=== PATIENT | male | born 1995 | race Two or more races ===

== ENCOUNTER → 2024-02-29 | Outpatient (BNVA) | payer MEDICAID, SELFPAY | END | disposition home or self-care (01) | PROVIDERS: PCP Nurse Practitioner Family; Referring Provider Nurse Practitioner Family; Visit Provider Nurse Practitioner Family | DX: M25.561 Pain in right knee (principal); M25.562 Pain in left knee; K76.0 Fatty (change of) liver, not elsewhere classified; R94.5 Abnormal results of liver function studies; E55.9 Vitamin D deficiency, unspecified; E78.5 Hyperlipidemia, unspecified; J02.9 Acute pharyngitis, unspecified | CPT/HCPCS: 96372; 99214; J1885 ==

== ENCOUNTER → 2024-03-04 | Outpatient (CLI) | payer MEDICAID, SELFPAY ==
--- NOTE | 2024-03-04 11:36 | XR_ITS ---
Examination: Bilateral knees 6 views Bilateral axial knees single view TECHNIQUE: AP oblique lateral right and left knees total 6 views Bilateral axial knees single view total 7 views Exam date and time: March 04, 2024 1137 hours INDICATIONS: Onset bilateral knee pain beginning one month ago. FINDINGS: Bilateral mild narrowing and early osteoarthritis medial joint spaces No patellar dislocation No fracture or dislocation IMPRESSION: Early osteoarthritis medial joint spaces
== END | disposition home or self-care (01) ==
LOC: CDIM 11:22
PROVIDERS: Referring Provider Nurse Practitioner Family; Visit Provider Nurse Practitioner Family
DX: M17.0 Bilateral primary osteoarthritis of knee (principal)
CPT/HCPCS: 73564

== ENCOUNTER → 2024-03-08 | Outpatient (BNVA) | payer MEDICAID, SELFPAY | END | disposition home or self-care (01) | PROVIDERS: PCP Nurse Practitioner Family; Referring Provider Nurse Practitioner Family; Visit Provider Nurse Practitioner Family | DX: M17.0 Bilateral primary osteoarthritis of knee (principal); Z71.2 Person consulting for explanation of examination or test findings | CPT/HCPCS: 99212; G0463 ==

== ENCOUNTER 2024-05-05 12:19 | Emergency (ER) | payer MEDICAID, SELFPAY ==
[2024-05-05 12:30] VITALS: BP 136/84; PULSE 98; RESP 18; TEMP 37.3; O2SAT 97; BMI 37.6
--- NOTE | 2024-05-05 12:37 | EDNOTE_ITS ---
ED Head Injury RME/HPI General Chief complaint: Head Injury Stated complaint: FOREHEAD SOCCOR INJURY FROM ELBOW Time Seen by Provider: 05/05/24 12:28 Source: patient Arrival date/time: 05/05/24 12:19 28-year-old male with no known medical history presents to the emergency room with a chief complaint of a small laceration to the right side of his forehead after playing soccer and getting hit with an elbow. Mode of arrival: ambulatory Limitations: no limitations Related Data Previous Rx's ?Medication ?Instructions ?Recorded diclofenac sodium 1 % topical gel 4 g topical QID #100 grams 03/08/24 (Voltaren Arthritis Pain) Allergies Allergy/AdvReac Type Severity Reaction Status Date / Time No Known Allergies Allergy Verified 05/05/24 12:21 Review of Systems Review of Systems Systems Reviewed: All systems reviewed, normal except as documented Constitutional Constitutional: Reports system reviewed and no additional complaints, except as documented, Denies fatigue, Denies fever(s), Denies headache(s) and Denies weakness Eyes Eyes: Reports system reviewed and no additional complaints, except as documented, Denies blurry vision and Denies change in vision ENT Ears, Nose, Mouth, and Throat: Reports system reviewed and no additional complaints, except as documented, Denies otalgia, Denies headache(s), Denies nasal congestion, Denies throat swelling and Denies vertigo Cardiovascular Cardiovascular: Reports system reviewed and no additional complaints, except as documented, Denies chest pain, Denies dyspnea and Denies dyspnea on exertion Respiratory Respiratory: Reports system reviewed and no additional complaints, except as documented, Denies chest congestion, Denies cough, Denies dyspnea, Denies dyspnea on exertion and Denies wheezing Gastrointestinal Gastrointestinal: Reports system reviewed and no additional complaints, except as documented, Denies abdominal pain, Denies cramping, Denies nausea and Denies vomiting Genitourinary Genitourinary: Reports system reviewed and no additional complaints, except as documented, Denies dysuria and Denies hematuria Musculoskeletal Musculoskeletal: Reports system reviewed and no additional complaints, except as documented and Denies back pain Integumentary/Breasts Skin/Breast: Reports system reviewed and no additional complaints, except as documented and Denies wounds Neurologic Neurologic: Reports system reviewed and no additional complaints, except as documented, Denies confusion, Denies headache(s), Denies lack of coordination, Denies vertigo and Denies weakness Psychiatric Psychiatric: Reports system reviewed and no additional complaints, except as documented, Denies anxiety, Denies confusion, Denies depression, Denies paranoia, Denies suicidal ideation and Denies tactile hallucinations Endocrine Endocrine: Reports system reviewed and no additional complaints, except as documented and Denies fatigue Hematologic/Lymphatic Hematologic/Lymphatic: Reports system reviewed and no additional complaints, except as documented and Denies lymphadenopathy Allergic/Immunologic Allergic/Immunologic: Reports system reviewed and no additional complaints, except as documented, Denies throat swelling, Denies urticaria and Denies wheezing Past Medical History Social History SMOKING STATUS: Never smoker SECOND HAND EXPOSURE: No ED Exam General Limitations: Present no limitations General appearance: Present alert and in no apparent distress Head Head exam: Present atraumatic, normocephalic and normal inspection Expanded Head Exam Head exam physical: Present laceration Head image: 2 1. 0.5 cm superficial abrasion to the right forehead. This wound does not need sutures and was closed and approximated with Dermabond. Eye Eye exam: Present normal appearance, PERRL and EOMI ENT ENT exam: Present normal exam, normal oropharynx and mucous membranes moist Neck Neck exam: Present normal inspection, full ROM and trachea midline Chest Chest inspection: Present normal inspection and symmetric chest wall rise Respiratory Respiratory exam: Present normal lung sounds bilaterally Cardiovascular Cardiovascular exam: Present regular rate, normal rhythm and normal heart sounds Abdominal Exam Abdominal exam: Present soft and normal bowel sounds Extremities Exam Extremities exam: Present normal inspection and full ROM Back Exam Back exam: Present normal inspection and full ROM Neurological Exam Neurological exam: Present alert, oriented X3 and CN II-XII intact Psychiatric Psychiatric exam: Present normal affect and normal mood Skin Skin exam: Present warm, dry, intact and normal color Course Quality Measures none Orders Category Date Time Status Wound Care NOW Care 05/05/24 12:42 Completed Acetaminophen Tab [Tylenol ES Tab] Med 05/05/24 13:26 Discontinued 1,000 mg PO X1 ONE Vital Signs Vital signs: Vital Signs Temperature 99.2 F 05/05/24 12:30 Pulse Rate 98 05/05/24 12:30 Respiratory Rate 18 05/05/24 12:30 Blood Pressure 136/84 H 05/05/24 12:30 Pulse Oximetry (%) 97 05/05/24 12:30 Oxygen Delivery Method Room Air 05/05/24 12:30 Head Injury MDM Narrative MDM Narrative:: 28-year-old male with no known medical history presents to the emergency room with a chief complaint of a small laceration to the right side of his forehead after playing soccer and getting hit with an elbow. Patient is hemodynamically stable and in no apparent distress. Patient is a GCS of 15 he is alert and oriented x 3. Pupils are PERRLA EOMs are intact patient denies any nausea vomiting or any loss of consciousness. Patient has a small 0.5 cm laceration above the right eyebrow. This wound is very superficial and I would consider a small abrasion. No sutures were needed I closed and approximated the small abrasion with Dermabond and a Steri-Strip. Patient was educated to return to the emergency room for any evidence of worsening signs or symptoms Patient data External records reviewed:: [facility] previous records Clinical information provided by:: patient Social determinants that could affect healthcare access:: none Patient has the following chronic illnesses:: No chronic illness How is presenting disease/condition affected by chronic disease/condition?: no chronic disease Evaluation data The following diagnostics were reviewed and interpreted by me:: lab results and radiology exam(s) Lab and/or radiology exams considered but not ordered:: Labs and radiology exams considered and ordered Interpretation Summary: N/A Medications / Prescriptions Medications or Prescriptions considered but not ordered:: Medication given Medication administrations:: Medication Administration History Discontinued Medications Acetaminophen (Acetaminophen 500 Mg Tablet) 1,000 mg PO X1 ONE Stop: 05/05/24 13:27 Last Admin: 05/05/24 13:30 Dose: 1,000 mg Documented By: KF Medication given Consultations Consultation(s) initiated? (list below): No Diagnosis Differential diagnosis head injury: concussion without loss of consciousness, closed head injury, concussion with loss of consciousness and other (Abrasion/laceration) Most likely diagnosis given after review of the tests above:: Laceration Admission Indicated Admission indicated?: not indicated Admission Request Was there a request for admission?: No Disposition Plan Disposition Plan: Discharge Discharge Attestation Discharge Attestation: The patient and all family members were given an opportunity to ask questions and understood the discharge instructions. Discharge instructions specifically effects, indications for sooner follow up or return to the emergency department, and the expected course of current diagnosis. Patient condition: Stable Discharge Plan Plan Patient Disposition: HOME (Self Care) Disposition Comment: Stable Prescriptions/Referrals Prescriptions/Med Rec: No Action diclofenac sodium [Voltaren Arthritis Pain] 1 % gel 4 g topical QID Qty: 100 0RF Rx Instructions: apply to area of concerns Problem List Clinical Impression: Laceration, Head injury Patient/Caregiver Discharge Instructions Education Materials: ED Head Injury (Adult) Additional Instructions: Enma un seguimiento con lopez proveedor de atenci?n primaria en las pr?ximas 24 a 48 horas. Ante cualquier evidencia de empeoramiento de los signos o s?ntomas, regrese a la loki de emergencias de inmediato. Print Language: English Stand Alone Forms: Milla Award Info., Patient Portal Info Letter PA/[employer] MACHINE OPERATOR Supervising Physician PA/POTAT[employer] S[employer]ING MACHINE OPERATOR Supervising Physician: Dr. Devlin
[2024-05-05] MEDS: ACETAMINOPHEN 500 MG TABLET 1000 MG PO (13:30)
== END 2024-05-05 13:36 | disposition home or self-care (01) ==
PROVIDERS: Emergency Provider Emergency Medicine; PCP Nurse Practitioner Family
DX: S09.90XA Unspecified injury of head, initial encounter (principal); S01.111A Laceration without foreign body of right eyelid and periocular area, initial encounter; W50.0XXA Accidental hit or strike by another person, initial encounter; Y93.66 Activity, soccer
CPT/HCPCS: 12011; 99283; A9270